=== PATIENT | female | born 1985 | race Two or more races ===

== ENCOUNTER 2021-05-25 04:51 | Inpatient (IN) | payer SELFPAY ==
[~2021-05-25] VITALS: Ht 160 cm; Wt 56.7 kg
[2021-05-25] MEDS ORDERED: PRENATAL FORMU1 EAC2 PO (10:14)
[2021-05-25 10:24] LABS: HEMOGLOBIN 11.9 gm/dl (12.3-15.3); RED BLOOD COUNT 3.77 M/UL (4.00-5.10); WHITE BLOOD COUNT 10.8 K/UL (4.5-11.0)
[2021-05-26 04:30] LABS: HEMOGLOBIN 10.9 gm/dl (12.3-15.3)
[2021-05-27] MEDS ORDERED: HYDROCODON-ACE1 EAC4 PO (09:16)
[2021-05-27] MEDS ORDERED: DOCUSATE SODIU100 MG PO (09:16)
[2021-05-27] MEDS ORDERED: IBUPROFEN600 MG PO (09:16)
== END 2021-05-27 12:25 | disposition home or self-care (01) | DRG 807 ==
LOC: GENOP 04:51 → OB 10:08
PROVIDERS: ADMIT Obstetrics & Gynecology
PROC: 10E0XZZ Delivery of Products of Conception, External Approach (ICD-10-PCS; principal; 2021-05-25)
PROC: 0KQM0ZZ Repair Perineum Muscle, Open Approach (ICD-10-PCS; 2021-05-25)
DX: O99.824 Streptococcus B carrier state complicating childbirth (principal); Z37.0 Single live birth; Z3A.39 39 weeks gestation of pregnancy; O70.1 Second degree perineal laceration during delivery; Z20.822 Contact with and (suspected) exposure to COVID-19
CPT/HCPCS: 36415; 85014; 85018; 85025; J2590; J7120; U0002